=== PATIENT | female | born 1990 | race Hispanic/Latino ===

== ENCOUNTER 2021-08-05 13:58 | Emergency (ER) | payer OTHER, SELFPAY ==
[2021-08-05 14:04] VITALS: BP 125/87; PULSE 82; RESP 16; TEMP 37.1; O2SAT 97; BMI 31.8
--- NOTE | 2021-08-05 14:25 | DI.US.S_ITS ---
PROCEDURE: US OB <= 14 WEEKS FETUS INDICATIONS: WITH VAGINAL BLEEDING OUTSIDE/PRIOR DATING DATA: Last menstrual period (LMP): May 22, 2021. LMP-based estimated date of delivery (FRANKLIN): February 26, 2022. First dating scan (date and location): [facility], August 05, 2021. Estimated date of delivery (FRANKLIN) from first dating scan: February 27, 2022. TECHNIQUE: Real-time scanning was performed of the fetus and maternal pelvic organs, with image documentation. Endovaginal scanning was also performed to better visualize the fetus and maternal ovaries. COMPARISON: None. FINDINGS: Embryo: Single live intrauterine gestation is visualized with a crown-rump length of 3.65 cm for a gestational age of 10 weeks, 4 days. There is a 2.2 x 1.9 x 0.8 cm perigestational bleed. Heart rate: 173 Maternal organs: Ovaries have a normal appearance bilaterally. There is a 2.2 x 1.9 x 0.8 right corpus luteal cyst. IMPRESSION: 1. Single live intrauterine gestation with a gestational age of 10 weeks, 4 days by crown-rump length. 2. Small perigestational bleed. We strive to produce accurate, complete, and clear reports of imaging services. To assist us in improving patient care, this report was composed using standard report templates and voice recognition software. Therefore, it may contain abnormal punctuation, insertions and/or omissions. Occasional wrong-word or sound-alike substitutions may occur. Though we review the report and make efforts to correct it, we do recommend that the report be read carefully in proper context to recognize any text inaccuracies. Dictated by: Chelle Giron M.D. on 08/05/2021 at 15:38 Approved by: Chelle Giron M.D. on 08/05/2021 at 15:40
[2021-08-05 15:41] LABS: Add Manual Diff / Slide Review NO; Basophils Absolute Auto 0 /uL (0-100); Basophils Percent Auto 0.2 % (0-2); Eosinophils Absolute Auto 100 /uL (0-450); Eosinophils Percent Auto 0.9 % (2-4); Hematocrit 34.6 % (36-46); Hemoglobin 11.6 g/dL (12.0-16.0); Lymphocytes Absolute Auto 1300 /uL (1100-4500); Lymphocytes Percent Auto 17.9 % (25-40); Mean Corpuscular HGB Conc 33.5 % (30-36); Mean Corpuscular Hemoglobin 27.1 PG (26-34); Mean Corpuscular Volume 80.8 fL (80-100); Monocytes Absolute Auto 500 /uL (0-900); Monocytes Percent Auto 6.4 % (3-14); Neutrophils Absolute Auto 5600 /uL (1500-7000); Neutrophils Percent Auto 74.6 % (50-75); Platelet Count 158 X10^3/uL (150-400); Red Blood Cell Count 4.29 X10^6/uL (4.0-5.2); Red Cell Distribution Width 16.9 % (11.6-14.8); White Blood Cell Count 7.5 X10^3/uL (4.5-11.0)
[2021-08-05 15:56] LABS: Alanine Aminotransferase 12 IU/L (<35); Albumin 4.3 g/dL (3.5-5.0); Albumin Globulin Ratio 1.4 (1.0-2.8); Alkaline Phosphatase 73 U/L (38-126); Aspartate Aminotransferase 21 IU/L (14-36); BUN Creatinine Ratio 17.2 (6-22); Bilirubin Total 0.1 mg/dL (0.2-1.3); Blood Urea Nitrogen 10 mg/dL (7-17); Calcium 9.1 mg/dL (8.4-10.2); Carbon Dioxide 26 mmol/L (22-32); Chloride 102 mmol/L (98-107); Estimated Glomerular Filt Rate > 60 mL/min (>60); Glucose 101 mg/dL (70-100); HEMOLYSIS < 15 (0-50); Potassium 3.6 mmol/L (3.4-5.1); Sodium 136 mmol/L (137-145); Total Protein 7.3 g/dL (6.3-8.2)
[2021-08-05 16:36] LABS: HCG Quantitative /Beta subunit 60477 mIU/mL
--- NOTE | 2021-08-05 18:05 | ED_ITS ---
HPI - Female Genitourinary General Chief complaint: Urogenital-Female Stated complaint: Pelvic cramping- referred by Soni nurse for US Time Seen by Provider: 08/05/21 18:05 Source: patient Mode of arrival: Ambulatory Limitations: no limitations Related Data Home Medications Medication Instructions Recorded Confirmed prenat.vits,jaleesa,dsp-pafk-wymss 1 tab PO DAILY 07/13/21 Allergies Allergy/AdvReac Type Severity Reaction Status Date / Time Latex, Natural Rubber AdvReac Mild Verified 07/13/21 13:45 Review of Systems Review of Systems ROS Unobtainable: All systems reviewed & are unremarkable except as noted in HPI and below Patient History Surgical History History of Substance Use Type: does not use Exam Initial Vital Signs Initial Vital Signs: Vital Signs Temperature 98.8 F 08/05/21 14:04 Pulse Rate 82 08/05/21 14:04 Respiratory Rate 16 08/05/21 14:04 Blood Pressure 125/87 08/05/21 14:04 Pulse Oximetry 97 08/05/21 14:04 Course Orders Ordered: ED Orders 08/05/21 14:25 US OB <= 14 weeks fetus Stat 08/05/21 15:11 ABO RH Type Stat Complete Blood Count AUTO DIFF Stat Comprehensive Metabolic Panel Stat HCG Quantitative /Beta subunit Stat Vital Signs Vital signs: Vital Signs - 8 hr 08/05/21 14:04 Temperature 98.8 F Pulse Rate 82 Respiratory Rate 16 Blood Pressure 125/87 Pulse Oximetry 97 MDM - Female Genitourinary Lab Data Result diagrams: 08/05/21 15:11 08/05/21 15:11 Labs: Lab Results 08/05/21 08/05/21 08/05/21 Range/Units 15:11 15:11 15:11 WBC 7.5 (4.5-11.0) X10^3/uL RBC 4.29 (4.0-5.2) X10^6/uL Hgb 11.6 L (12.0-16.0) g/dL Hct 34.6 L (36-46) % MCV 80.8 (80-100) fL MCH 27.1 (26-34) PG MCHC 33.5 (30-36) % RDW 16.9 H (11.6-14.8) % Plt Count 158 (150-400) X10^3/uL Neut % (Auto) 74.6 (50-75) % Lymph % (Auto) 17.9 L (25-40) % [place] % (Auto) 6.4 (3-14) % Eos % (Auto) 0.9 L (2-4) % Baso % (Auto) 0.2 (0-2) % Neut # (Auto) 5600 (1809-0621) /uL Lymph # (Auto) 1300 (3776-0535) /uL [place] # (Auto) 500 (0-900) /uL Eos # (Auto) 100 (0-450) /uL Baso # (Auto) 0 (0-100) /uL Sodium 136 L (137-145) mmol/L Potassium 3.6 (3.4-5.1) mmol/L Chloride 102 (98-107) mmol/L Carbon Dioxide 26 (22-32) mmol/L BUN 10 (7-17) mg/dL Creatinine 0.58 (0.52-1.04) mg/dL Estimated GFR > 60 (>60) mL/min BUN/Creatinine Ratio 17.2 (6-22) Glucose 101 H (70-100) mg/dL Calcium 9.1 (8.4-10.2) mg/dL Total Bilirubin 0.1 L (0.2-1.3) mg/dL AST 21 (14-36) IU/L ALT 12 (<35) IU/L Alkaline Phosphatase 73 (38-126) U/L Total Protein 7.3 (6.3-8.2) g/dL Albumin 4.3 (3.5-5.0) g/dL Globulin 3.0 (1.7-4.1) g/dL Albumin/Globulin Ratio 1.4 (1.0-2.8) HCG, Quant 70175 mIU/mL Blood Type O Positive Discharge Plan Departure Prescriptions: No Action prenat.vits,jaleesa,kxa-[id number]-aqrdd Tablet 1 tab PO DAILY 0RF Referrals: Elda Crabtree DO [Primary Care Provider] -
--- NOTE | 2021-08-05 18:07 | ED_ITS ---
HPI - General Chief complaint: Urogenital-Female Stated complaint: Pelvic cramping- referred by Soni severino for US Time Seen by Provider: 08/05/21 18:05 Source: patient Mode of arrival: Ambulatory Limitations: no limitations History of Present Illness HPI Narrative: This is a 31-year-old female who is a at 10 weeks who presents for dark bloody spotting. Patient states she started having pelvic cramping and spotting in the last several weeks started as bright red blood it is now been dark but h as had some increasing amount of spotting. She states pretty much daily certain movements such as twisting or repetitive bending increase the cramping sensation or cause pain. She has not had any large clots. She has not felt lightheaded, no chest pain or shortness of breath. She has nausea with struck smells. No vomiting. No dysuria urgency or frequency. No new vaginal discharge. No back or flank pain. Patient primary care is Dr. Crabtree, she will be her provider but they have not had their 1st visit. She is on a vitamin. She does not have any other medical issues. No prior surgeries. No allergies besides latex. Patient is accompanied by her . She did have a prior visit at [facility] urgency department had ultrasound that told her she had a chorionic hemorrhage but she is unsure of the size. Related Data Home Medications Medication Instructions Recorded Confirmed prenat.vits,jaleesa,uuo-esfg-wibun 1 tab PO DAILY 07/13/21 Allergies Allergy/AdvReac Type Severity Reaction Status Date / Time Latex, Natural Rubber AdvReac Mild Verified 07/13/21 13:45 Review of Systems Review of Systems ROS Unobtainable: All systems reviewed & are unremarkable except as noted in HPI and below Exam Narrative Exam Narrative: GENERAL: Alert and oriented x three, female in mild distress. HEENT: Head normocephalic, atraumatic, EOMI, pupils reactive, face symmetric, moist mucous membranes NECK: Supple, full range of motion CARDIOVASCULAR: Regular rate and rhythm without murmurs, rubs or gallops. RESPIRATORY: Breath sounds equal bilaterally, no wheezes rales or rhonchi. ABDOMEN: Soft, nontender. Normoactive bowel sounds all 4 quadrants. No guarding or rebound, rigidity, no mass : No CVA tenderness EXTREMITIES: Normal range of motion, no clubbing or edema. Neurovascularly intact NEUROLOGICAL: Cranial nerves II through XII grossly intact. Moving all extremities SKIN: Warm, dry, no petechiae, no rashes or lesions. Initial Vital Signs Initial Vital Signs: Vital Signs Temperature 98.8 F 08/05/21 14:04 Pulse Rate 82 08/05/21 14:04 Respiratory Rate 16 08/05/21 14:04 Blood Pressure 125/87 08/05/21 14:04 Pulse Oximetry 97 08/05/21 14:04 Course Orders Ordered: ED Orders 08/05/21 14:25 US OB <= 14 weeks fetus Stat 08/05/21 15:11 ABO RH Type Stat Complete Blood Count AUTO DIFF Stat Comprehensive Metabolic Panel Stat HCG Quantitative /Beta subunit Stat Vital Signs Vital signs: Vital Signs - 8 hr 08/05/21 14:04 Temperature 98.8 F Pulse Rate 82 Respiratory Rate 16 Blood Pressure 125/87 Pulse Oximetry 97 MDM - OB/Uterine Contractions Lab Data Result diagrams: 08/05/21 15:11 08/05/21 15:11 Labs: Lab Results 08/05/21 08/05/21 08/05/21 Range/Units 15:11 15:11 15:11 WBC 7.5 (4.5-11.0) X10^3/uL RBC 4.29 (4.0-5.2) X10^6/uL Hgb 11.6 L (12.0-16.0) g/dL Hct 34.6 L (36-46) % MCV 80.8 (80-100) fL MCH 27.1 (26-34) PG MCHC 33.5 (30-36) % RDW 16.9 H (11.6-14.8) % Plt Count 158 (150-400) X10^3/uL Neut % (Auto) 74.6 (50-75) % Lymph % (Auto) 17.9 L (25-40) % [place] % (Auto) 6.4 (3-14) % Eos % (Auto) 0.9 L (2-4) % Baso % (Auto) 0.2 (0-2) % Neut # (Auto) 5600 (9962-2300) /uL Lymph # (Auto) 1300 (6540-7610) /uL [place] # (Auto) 500 (0-900) /uL Eos # (Auto) 100 (0-450) /uL Baso # (Auto) 0 (0-100) /uL Sodium 136 L (137-145) mmol/L Potassium 3.6 (3.4-5.1) mmol/L Chloride 102 (98-107) mmol/L Carbon Dioxide 26 (22-32) mmol/L BUN 10 (7-17) mg/dL Creatinine 0.58 (0.52-1.04) mg/dL Estimated GFR > 60 (>60) mL/min BUN/Creatinine Ratio 17.2 (6-22) Glucose 101 H (70-100) mg/dL Calcium 9.1 (8.4-10.2) mg/dL Total Bilirubin 0.1 L (0.2-1.3) mg/dL AST 21 (14-36) IU/L ALT 12 (<35) IU/L Alkaline Phosphatase 73 (38-126) U/L Total Protein 7.3 (6.3-8.2) g/dL Albumin 4.3 (3.5-5.0) g/dL Globulin 3.0 (1.7-4.1) g/dL Albumin/Globulin Ratio 1.4 (1.0-2.8) HCG, Quant 95431 mIU/mL Blood Type O Positive Imaging Data US - OB: Radiologist's Impression: [place] [address] Ultrasound Report Signed Patient: Venice Quinn MR#: [id number] : 1990 Acct:[id number] Age/Sex: 31 / F Date of Service: 08/05/21 Loc: ED Accession Number: [id number] ?? Procedure: US OB <= 14 weeks fetus Ordering Provider: Angel Conroy MD PROCEDURE:? US OB <= 14 WEEKS FETUS ? INDICATIONS:? WITH VAGINAL BLEEDING ? OUTSIDE/PRIOR DATING DATA:? Last menstrual period (LMP):? May 22, 2021.? LMP-based estimated date of delivery (FRANKLIN):? February 26, 2022.? First dating scan (date and location):? [facility], August 05, 2021.? Estimated date of delivery (FRANKLIN) from first dating scan:? February 27, 2022. ? TECHNIQUE:? Real-time scanning was performed of the fetus and maternal pelvic organs, with image documentation.? Endovaginal scanning was also performed to better visualize the fetus and maternal ovaries.? ? COMPARISON:? None. ? FINDINGS:? ? Embryo:? Single live intrauterine gestation is visualized with a crown-rump length of 3.65 cm for a gestational age of 10 weeks, 4 days.? There is a 2.2 x 1.9 x 0.8 cm perigestational bleed. Heart rate:? 173 ? Maternal organs:? Ovaries have a normal appearance bilaterally. ? There is a 2.2 x 1.9 x 0.8 right corpus luteal cyst. ? ? IMPRESSION:? ? 1. Single live intrauterine gestation with a gestational age of 10 weeks, 4 days by crown-rump length. ? 2. Small perigestational bleed. ? We strive to produce accurate, complete, and clear reports of imaging services. To assist us in improving patient care, this report was composed using standard report templates and voice recognition software. Therefore, it may contain abnormal punctuation, insertions and/or omissions. Occasional wrong-word or sound-alike substitutions may occur. Though we review the report and make efforts to correct it, we do recommend that the report be read carefully in proper context to recognize any text inaccuracies. ? Dictated by: Chelle Giron M.D. on 08/05/2021 at 15:38 ? ? Approved by: Chelle Giron M.D. on 08/05/2021 at 15:40?? MDM Narrative Medical decision making narrative: This is a 31-year-old female who presents with cramping and persistent spotting. Patient describes it as dark blood. She is 10 weeks and 4 days on ultrasound with a 2.2 x 1.9 x 0.8 cm perigestational bleed heart rate is 173. Patient's is consistent with her dates. Discussed patient at this time pelvic rest, follow up with her provider discussed return prec autions. All questions asked. Discharge Plan Departure Patient Disposition: Home Clinical Impression: Vaginal bleeding in Instructions: DI for Vaginal Bleeding During Activity Restrictions/Additional Instructions: Follow-up with Dr. Crabtree at her appointment on the . Feel free to call the office tomorrow to see if they would like to see you sooner. You may take Tylenol up to a 1000 mg every 6 hours as needed for pain. Make sure you hydrate plenty with water. I would recommend pelvic rest, no sexual activity, no lifting over 20 lbs, and if certain activities seem to increase your discomfort or pain please avoid those activities. You may otherwise continue normal activities. Please return for lightheadedness or passing out, new chest pain or shortness of breath, rapidly worsening abdominal, back or flank pain, large amounts of bright red bleeding, large clots or other new or concerning symptoms. Prescriptions: No Action prenat.vits,jaleesa,[id number] Tablet 1 tab PO DAILY 0RF Referrals: Elda Crabtree DO [Primary Care Provider] -
[2021-08-05 18:43] VITALS: BP 112/80; PULSE 79; RESP 16; O2SAT 98
== END 2021-08-05 18:43 | disposition home or self-care (01) ==
PROVIDERS: Emergency Medicine; Emergency Provider Emergency Medicine; PCP Family Medicine
DX: O46.91 Antepartum hemorrhage, unspecified, first trimester (principal); R11.0 Nausea; Z3A.10 10 weeks gestation of pregnancy
CPT/HCPCS: 36415; 76801; 76817; 80053; 84702; 85025; 86900; 86901; 99281; 99283

== ENCOUNTER → 2021-08-19 11:55 | Outpatient (CLI) | payer OTHER, SELFPAY ==
[2021-08-19 13:22] LABS: Add Manual Diff / Slide Review NO; Basophils Absolute Auto 0 /uL (0-100); Basophils Percent Auto 0.1 % (0-2); Eosinophils Absolute Auto 100 /uL (0-450); Eosinophils Percent Auto 1.3 % (2-4); Hematocrit 35.2 % (36-46); Hemoglobin 11.8 g/dL (12.0-16.0); Lymphocytes Absolute Auto 1100 /uL (1100-4500); Lymphocytes Percent Auto 14.8 % (25-40); Mean Corpuscular HGB Conc 33.6 % (30-36); Mean Corpuscular Hemoglobin 27.6 PG (26-34); Mean Corpuscular Volume 82.3 fL (80-100); Monocytes Absolute Auto 500 /uL (0-900); Monocytes Percent Auto 6.6 % (3-14); Neutrophils Absolute Auto 5600 /uL (1500-7000); Neutrophils Percent Auto 77.2 % (50-75); Platelet Count 160 X10^3/uL (150-400); Red Blood Cell Count 4.28 X10^6/uL (4.0-5.2); Red Cell Distribution Width 17.2 % (11.6-14.8); White Blood Cell Count 7.3 X10^3/uL (4.5-11.0)
[2021-08-20 06:23] LABS: RPR Screen Non Reactive (Non Reactive)
[2021-08-20 07:37] LABS: Varicella IgG Antibody 2441 index (Immune >165)
[2021-08-21 17:20] LABS: Hepatitis B Surface Antigen NEGATIVE s/c (NEGATIVE); Rubella Antibody IgG 56.1 IU/mL (>15)
[2021-08-21 17:37] LABS: HIV 1 & 2 Ab/Ag 4th Gen Combo NEGATIVE (NEGATIVE); Hep C Virus Ab w/Reflex Quant NEGATIVE s/c (NEGATIVE)
== END ==
PROVIDERS: Referring Provider Family Medicine; Visit Provider Family Medicine
DX: Z34.81 Encounter for supervision of other normal pregnancy, first trimester (principal)
CPT/HCPCS: 36415; 80055; 86787; 86803; 86850; 86900; 86901; 87389

== ENCOUNTER → 2021-10-01 14:07 | Outpatient (CLI) | payer OTHER, SELFPAY ==
--- NOTE | 2021-10-01 14:08 | DI.US.S_ITS ---
PROCEDURE: US OB >= 14 WEEKS FETUS INDICATIONS: ANATOMY OUTSIDE/PRIOR DATING DATA: Last menstrual period (LMP): 05/22/2021. LMP-based estimated date of delivery (FRANKLIN): 02/26/2022. First dating scan (date and location): 08/05/2021. Estimated date of delivery (FRANKLIN) from first dating scan: 02/07/2022. TECHNIQUE: Real-time scanning was performed of the fetus, with image documentation and biometric measurements. COMPARISON: [facility], OB <= 14 WEEKS FETUS, 08/05/2021, 15:34. FINDINGS: General: A single living intrauterine gestation is present. Presentation: Pre. Placenta: Placental position is posterior , without previa. Amniotic fluid index: 15 cm, normal range is 5-24 cm. Single deepest vertical pocket is 5.2 cm. heart rate: 153 beats per minute. Maternal cervical canal: 4.3 cm long. Normal lower limit is 2.5 cm. biometrics: Biparietal diameter: 4.1 cm 18 weeks 2 days Head circumference: 15.3 cm 18 weeks 2 days Abdominal circumference: 12.1 cm 17 weeks 6 days Femur length: 2.9 cm 19 weeks 0 days Composite gestational age from initial ultrasound: 18 weeks 5 days Composite gestational age from present scan: 18 weeks 3 days Estimated weight and percentile: 236 g 25th percentile Anatomic survey: Neuro: Ventricles are non-dilated at less than 10 mm. Cisterna magna is normal at 3-11 mm. Cerebellum is normal in size and morphology. Nuchal skin fold: Normal at less than 6 mm between 14-21 weeks gestational age. Face: Nose and lips, facial profile are normal. Spine: No evidence for spina bifida. Heart: 4-chambered heart is present, with normal ventricular outflow tracts. Diaphragm: Diaphragm is intact. Stomach: Left-sided stomach is present. Kidneys: No hydronephrosis. Normal is less than 5 mm in 2nd trimester, less than 7 mm in 3rd trimester. Cord: 3-vessel cord has orthotopic insertion. Bladder: Normal in size. Extremities: All 4 extremities identified. IMPRESSION: Single live intrauterine with ultrasound gestational age today 18 weeks 3 days. Anatomy is within normal limits. We strive to produce accurate, complete, and clear reports of imaging services. To assist us in improving patient care, this report was composed using standard report templates and voice recognition software. Therefore, it may contain abnormal punctuation, insertions and/or omissions. Occasional wrong-word or sound-alike substitutions may occur. Though we review the report and make efforts to correct it, we do recommend that the report be read carefully in proper context to recognize any text inaccuracies. Dictated by: Viky Martinez M.D. on 10/01/2021 at 16:28 Approved by: Viky Martinez M.D. on 10/01/2021 at 16:31
== END ==
PROVIDERS: Referring Provider Family Medicine; Visit Provider Family Medicine
DX: Z34.92 Encounter for supervision of normal pregnancy, unspecified, second trimester (principal); Z3A.18 18 weeks gestation of pregnancy
CPT/HCPCS: 76811

== ENCOUNTER → 2021-12-31 10:42 | Outpatient (CLI) | payer OTHER, SELFPAY ==
[2021-12-31 13:30] LABS: Hematocrit 32.2 % (36-46); Hemoglobin 11.1 g/dL (12.0-16.0)
[2021-12-31 13:42] LABS: GTT (PREG) 1 Hour PP 50gm Dose 160 mg/dL (76-139)
== END ==
PROVIDERS: Referring Provider Family Medicine; Visit Provider Family Medicine
DX: Z34.90 Encounter for supervision of normal pregnancy, unspecified, unspecified trimester (principal); Z3A.29 29 weeks gestation of pregnancy
CPT/HCPCS: 82950; 85014; 85018

== ENCOUNTER 2022-01-23 11:33 | Outpatient (CLI) | payer OTHER, SELFPAY ==
--- NOTE | 2022-01-23 13:23 | PM.OBTRLD ---
Visit Information Visit Information Date of evaluation: 01/23/22 Primary OB Provider: Elda Crabtree Reason for Evaluation: Yes non-stress test Comments/Additional reasons for admission: 27-year-old at 35 weeks gestation sent from clinic due to tachycardia with the Doppler. She denies contractions, leaking or bleeding and reports good movement. She can be very anxious in medical settings and has felt anxious today. Vital Signs Vital Signs: Temperature 36.3? blood pressure 110/66 heart rate 83 PFSH Medical History Acne (~2012) Anemia (~2006) Anxiety (~2011) Chicken pox (~1997) Surgical History Anesthesia History of (~05/05/11) History of skin surgery Family History Father Diabetes mellitus Hyperlipidemia Mother Hypertension Anxiety Grandfather Hypertension Stroke Grandmother Diabetes mellitus Hypertension Hyperlipidemia Anxiety Grandfather Hypertension Grandmother Diabetes mellitus Hyperlipidemia Hypertension Social History marital status: number of children: 1 household members: spouse and children lives independently: Yes housing: house pets and animals: No occupational status: unemployed current occupational exposures/hazards: No special paul needs: No travel history: over 6 months ago seatbelt use: always water heater temp set < 120 deg: No (Will check and change if needed) working smoke detector in home: Yes fire extinguisher in home: Yes carbon monox detector in home: Yes firearms in home: Yes firearms unloaded and locked: Yes do you feel safe at home: Yes Smoking Status: Never smoker second hand exposure: No alcohol intake: former substance use type: does not use during the past year weight has: remained stable well-balanced diet: daily or most days daily servings fruits/ve-4 caffeine: No (drinks decaf) Type(s) of exercise: walking and regular exercise Evaluation Evaluation Baseline heart rate: 150 Variability: Moderate (11-25) monitor accelerations: Present Monitor Decelerations: Absent Category of Tracing: Reactive Diagnosis, Plan/Disposition Final Diagnosis (1) 35 weeks gestation of : Status: Acute Plan/Disposition Plan: 31-year-old 35 weeks gestation with concern for tachycardia. When she was initially placed on the monitor the baseline heart rate was 160 with moderate variability and accelerations. After approximately 40 minutes the baseline settled down to 150s. Patient drink water during that time. No concern for fever or illness. Patient was encouraged to hydrate well. OB Disposition: home
== END 2022-01-23 12:55 | disposition home or self-care (01) ==
LOC: LABOR 12:49 → OB 01-26 08:55
PROVIDERS: Referring Provider Family Medicine; Visit Provider Family Medicine
DX: O36.8330 Maternal care for abnormalities of the fetal heart rate or rhythm, third trimester, not applicable or unspecified (principal); Z3A.35 35 weeks gestation of pregnancy
CPT/HCPCS: 59025; G0378; G0379

== ENCOUNTER → 2022-02-05 15:19 | Outpatient (CLI) | payer OTHER, MEDICAID, SELFPAY ==
[2022-02-06 15:00] LABS: Strep Grp B PCR NEG for Grp B Strep
== END ==
PROVIDERS: Visit Provider Family Medicine
DX: Z34.93 Encounter for supervision of normal pregnancy, unspecified, third trimester (principal); Z3A.36 36 weeks gestation of pregnancy
CPT/HCPCS: 87653

== ENCOUNTER 2022-02-19 05:50 | Inpatient (IN) | payer OTHER, MEDICAID, SELFPAY ==
[2022-02-19 06:29] VITALS: BP 122/82
[2022-02-19] MEDS: LACTATED RINGERS 1,000 ML 100 ML IV (06:48)
[2022-02-19 06:49] LABS: Add Manual Diff / Slide Review NO; Basophils Absolute Auto 0 /uL (0-100); Basophils Percent Auto 0.3 % (0-2); Eosinophils Absolute Auto 100 /uL (0-450); Eosinophils Percent Auto 0.9 % (2-4); Hematocrit 30.2 % (36-46); Hemoglobin 10.3 g/dL (12.0-16.0); Lymphocytes Absolute Auto 1100 /uL (1100-4500); Lymphocytes Percent Auto 18.2 % (25-40); Mean Corpuscular Hemoglobin 28.9 PG (26-34); Mean Corpuscular Volume 84.9 fL (80-100); Monocytes Absolute Auto 600 /uL (0-900); Neutrophils Absolute Auto 4300 /uL (1500-7000); Neutrophils Percent Auto 70.6 % (50-75); Platelet Count 138 X10^3/uL (150-400); Red Blood Cell Count 3.56 X10^6/uL (4.0-5.2); Red Cell Distribution Width 15.2 % (11.6-14.8); White Blood Cell Count 6.1 X10^3/uL (4.5-11.0)
--- NOTE | 2022-02-19 06:50 | P.HPOB_ITS ---
OB HPI Date/Time Date of admission: 02/19/22 Date Patient Seen: 02/19/22 History of Present Condition Chief complaint: Repeat C Section FRANKLIN Calculator Estimated Delivery Date Method Current WG Current Estimate 02/26/22 LMP (Certain) 39w 0d Other Estimates 03/01/22 Ultrasound #1 38w 4d Estimated Gestational Age (weeks): 39 : 2 Para: 1 Narrative: 31 30 weeks gestation here for repeat . Complicated by COVID in the second trimester without complications. She also has severe anxiety for wh ich she declines medication. She declined Tdap. She reluctantly completed a 1 hour GTT which was elevated at 160. She declined to do a 3 hour GTT but did check blood sugars 4 times a day at home for 2 weeks and all were in the normal range. care: good care, initiated at week # (12), number of visits (7) and pounds weight gain (10) Dating criteria OB: LMP confirmed by 1st trimester US Ultrasounds: normal 1st trimester US and normal mid trimester US Obstetrical complications: none Medical complications OB: none Indications Operative indications ( section): previous uterine surgery Preadmission Labs Last OB Lab Results: Blood Type O Positive 08/19/21 12:24 Antibody Screen Negative 08/19/21 12:24 Hematocrit 30.2 % (36-46) L 02/19/22 06:37 Hemoglobin 10.3 g/dL (12.0-16.0) L 02/19/22 06:37 Hepatitis B Surface Antigen Negative s/c (NEGATIVE) 08/19/21 12 :24 Hepatitis C Antibody Negative s/c (NEGATIVE) 08/19/21 12:24 Rubella Antibody 56.1 IU/mL (>15) 08/19/21 12:24 Varicella-Zoster IgG Antibody 2441 index (Immune >165) 08/19/21 12:24 Glucose 1 Hour 160 mg/dL (76-139) H 12/31/21 12:35 Group B Streptococcus (PCR) Neg for grp b strep 02/05/22 15:19 Prior (ies) Past Pregnancies Del. Date GA/Weeks Labor Lgth Wt Sex Route Outcome Anesthesia Place Delv Breastfeed Preg Comp Name 05/05/11 41 36 7 lb 11 oz live - full term spinal [place], [place] 2 months failure to progress post-dates induction Sergey Delivery Date: 05/05/11 Last Updated by: Ksenia Hall R.N. hemorrhage (~4 units PRBCs transfused) Evaluation Evaluation Baseline heart rate: 140 Variability: Moderate (11-25) monitor accelerations: Present Monitor Decelerations: Absent Category of Tracing: Reactive [facility] Medical History Acne (~2012) Anemia (~2006) Anxiety (~2011) Chicken pox (~1997) Surgical History Anesthesia History of (~05/05/11) History of skin surgery Family History Father Diabetes mellitus Hyperlipidemia Mother Hypertension Anxiety Grandfather Hypertension Stroke Grandmother Diabetes mellitus Hypertension Hyperlipidemia Anxiety Grandfather Hypertension Grandmother Diabetes mellitus Hyperlipidemia Hypertension Social History marital status: number of children: 1 household members: spouse and children lives independently: Yes housing: house pets and animals: No occupational status: unemployed current occupational exposures/hazards: No special paul needs: No travel history: over 6 months ago seatbelt use: always water heater temp set < 120 deg: No (Will check and change if needed) working smoke detector in home: Yes fire extinguisher in home: Yes carbon monox detector in home: Yes firearms in home: Yes firearms unloaded and locked: Yes do you feel safe at home: Yes Smoking Status: Never smoker second hand exposure: No alcohol intake: former substance use type: does not use during the past year weight has: remained stable well-balanced diet: daily or most days daily servings fruits/ve-4 caffeine: No (drinks decaf) Type(s) of exercise: walking and regular exercise Meds Home Medications and Allergies Home Medications Medication Instructions Recorded Confirmed Type prenat.vits,jaleesa,sjr-upfc-vqriz 1 tab PO DAILY 07/13/21 02/19/22 History double electric breast pump and #1 ea 12/11/21 02/12/22 Rx supplies Blood glucose #100 ea 01/26/22 02/12/22 Rx monitor,strips,lancets Allergies Allergy/AdvReac Type Severity Reaction Status Date / Time Latex, Natural Rubber AdvReac Mild Verified 02/12/22 15:17 OB Exam Narrative Exam Narrative: Blood pressure 122/82 heart rate HENMT Head: normal to inspection Mouth: oral mucosae normal Eyes General: appearance normal, both eyes and all related structures Resp Effort & Inspection: normal respiratory effort Auscultation: clear to auscultation bilaterally Cardio Rate: regular rate Rhythm: regular rhythm Heart Sounds: S1 normal and S2 normal Extremities Lower extremity: Yes edema (trace bilateral) Estimated Weight (lbs): 7 Objective Labs Result Diagrams: 02/19/22 06:37 Assessment and Plan Assessment and Plan Assessment and Plan narrative: 31-year-old at 39 weeks gestation here for repeat section. Her first delivery was complicated. She was taken for primary section due to failure to progress, required general anesthesia then hemorrhaged requiring 4 units of blood. She is understandably nervous about surgery. Risks and benefits been discussed, specifically risk of bleeding, infection and injury to surrounding organs. She is accepting of a blood transfusion if needed. Consent signed. Will give 2 g of cefazolin prior to surgery.
[2022-02-19 07:04] LABS: COVID19 -Nasal RAPID Negative (Negative)
--- NOTE | 2022-02-19 07:33 | PM.PREOP ---
Pre-operative Note COVID-19 COVID-19 status: Negative Result date/Date tested (Pos, Neg/Pending): 02/19/22 Criteria for continued procedure: Non-surgical alternatives not available or appropriate per current SOC Interval Note History & Physical reviewed/Exam performed by Physician: Yes Changes to H&P: No
[2022-02-19] MEDS: CEFAZOLIN 2 GM/100 ML PREMIX 100 ML IV (08:01)
[2022-02-19] MEDS: ACETAMINOPHEN IV 1,000 MG/100 ML VIAL 400 MG IV (08:07)
--- NOTE | 2022-02-19 08:12 | SUR.OPER ---
Supine on padded OR bed, head on pillow, arms secured on padded arm boards at <90 degrees abduction, legs uncrossed, safety belt at thigh, tape over blanket over lower legs, bump under right hip.
--- NOTE | 2022-02-19 08:29 | SUR.OPER ---
cord blood and placenta sent with OB RN
--- NOTE | 2022-02-19 09:10 | PM.OBCS.1 ---
Operative Date/Time/Diagnoses Date of procedure: 02/19/22 Time of procedure: 08:15 Pre-op diagnosis: 39 weeks of Previous section Post-op diagnosis: same Procedure & Clinicians Procedure: Repeat low transverse section Same procedure as scheduled: Yes Indications: Prior section 39 weeks of Surgeon: Elda Crabtree Integrated Circuit Design Engineer: Mikaela Richards Reason for Integrated Circuit Design Engineer: Dr. Richards was essential for dissection dense scar tissue, retraction, vacuum assisted delivery of infant and closure of half the fascia. Anesthesia Type: Spinal Operative Notes Findings: Vigorous female , normal uterus, tubes and ovaries Closure Type: primary Estimated Blood Loss (mL): 500 Procedure in detail: The patient was taken to the operating room where she was placed in the seated position. Spinal anesthesia was administered. She was then placed in the dorsal supine position with a leftward tilt. SCDs applied. She was prepped and draped in the usual sterile fashion. A timeout was performed. After spinal analgesia was found to be adequate, a Pfannenstiel skin incision was made 2 fingerbreadths above the pubic symphysis over the previous scar and carried through to the underlying layer fascia. The fascia was nicked in the midline and the incision extended bilaterally with Jones scissors, Dr. Crabtree doing the left side and Dr. Richards doing the right side. The superior aspect of the fascial incision was grasped with a Charisse clamps, elevated, and the underlying rectus muscles dissected off sharply and bluntly. There was dense scar tissue dissected by Dr. Richards. Attention was then turned to the inferior aspect of this incision which in a similar fashion was grasped with a Charisse clamps, elevated, and the underlying rectus muscles dissected off sharply and bluntly. The rectus muscles were in the midline. The peritoneum was entered and dissected bluntly laterally by Dr. Crabtree and Dr. Richards. After entering the peritoneum there was good visualization of the bladder. The bladder blade was inserted. The vesicouterine peritoneum was identified, grasped with the pickup, and entered sharply with the Metzenbaum scissors. This incision was extended bilaterally, and the bladder flap was created digitally. The bladder blade was reinserted. The lower uterine segment was incised in a transverse fashion with the scalpel. Upon entering the amniotic sac there was a large amount clear amniotic fluid. The 's head was delivered with vacuum assistance by Dr. Richards due to difficulty despite fundal pressure. The remainder of the body delivered without difficulty. The cord was double clamped and cut after one minute. The infant was handed off to waiting RN and RT. The placenta was delivered with gentle traction. The uterus was cleared of all clots and debris. The uterine incision was repaired with #1 chromic in a running interlocking fashion and a second layer the same suture was used for an imbricating layer. Hemostasis was achieved. The tubes and ovaries were examined and were found to be normal. The gutters were cleared of all clots and debris. The peritoneum was closed using 2-0 Vicryl in a running fashion. The fascia was reapproximated using 0 Vicryl in a running fashion. Subcutaneous layer was copiously irrigated with warm normal saline. 3 simple interrupted sutures of 3-0 Vicryl were placed to reapproximate the subcutaneous layer. The skin was closed with 4-0 undyed Vicryl in a subcuticular fashion. Steri-Strips were placed. An Aquacel dressing was placed. The uterus was expressed of a small amount of old blood. Sponge, lap, and instrument counts were correct. The patient tolerated the procedure well, and was taken to PACU in stable condition. [place] Baby 1: Gender: Female Presentation: vertex Placental Delivery Description: Spontaneous Cord Vessel Description: 3 Vessels score (1 min): 9 score (5 min): 9 Post-operative Condition: stable Disposition: PACU Aftercare: routine postop
[2022-02-19 09:19] VITALS: BP 104/68; PULSE 56; RESP 14; O2SAT 98
[2022-02-19 09:24] VITALS: BP 105/73; BP 106/71; PULSE 57; PULSE 58; RESP 58; RESP 9; TEMP 36.6; O2SAT 97; O2SAT 99
[2022-02-19 09:29] VITALS: BP 108/73; PULSE 62; RESP 10; O2SAT 98
[2022-02-19] MEDS: ACETAMINOPHEN 325 MG TABLET 650 MG PO ×2 (13:06→22:38)
[2022-02-19] MEDS: KETOROLAC 30 MG/ML VIAL IV ×2 (14:45→21:02)
[2022-02-19] MEDS: OXYCODONE IR 5 MG TABLET PO ×3 (16:44→22:38)
[2022-02-20] MEDS: OXYCODONE IR 5 MG TABLET PO ×2 (02:59→06:04)
[2022-02-20] MEDS: KETOROLAC 30 MG/ML VIAL IV (03:00)
[2022-02-20] MEDS: ACETAMINOPHEN 325 MG TABLET 650 MG PO ×4 (06:04→23:38)
[2022-02-20 06:27] LABS: Add Manual Diff / Slide Review NO; Basophils Absolute Auto 0 /uL (0-100); Basophils Percent Auto 0.2 % (0-2); Eosinophils Absolute Auto 100 /uL (0-450); Eosinophils Percent Auto 0.8 % (2-4); Hematocrit 30.5 % (36-46); Hemoglobin 10.4 g/dL (12.0-16.0); Lymphocytes Absolute Auto 1500 /uL (1100-4500); Mean Corpuscular HGB Conc 34.1 % (30-36); Mean Corpuscular Hemoglobin 28.8 PG (26-34); Mean Corpuscular Volume 84.6 fL (80-100); Monocytes Absolute Auto 800 /uL (0-900); Neutrophils Absolute Auto 7200 /uL (1500-7000); Platelet Count 127 X10^3/uL (150-400); Red Blood Cell Count 3.61 X10^6/uL (4.0-5.2); Red Cell Distribution Width 15.5 % (11.6-14.8); White Blood Cell Count 9.6 X10^3/uL (4.5-11.0)
--- NOTE | 2022-02-20 07:50 | PM.OBPN.1 ---
Subjective - OB Subjective Patient comments: incisional pain, tolerating diet and flatus present Narrative: Patient has been having some pain over the left side of her incision that feels like burning. Pain medicines help. She has been up out bed and voided. Tolerating a diet and flatus. is going well without concerns in the . Date Patient Seen: 02/20/22 Time Patient Seen: 15:24 Exam Vital Signs (past 8 hours): Oxygen Delivery Method Room Air Narrative Exam Narrative: Temperature 97.9? blood pressure 116/74 heart rate 79 General: Awake and alert, no acute distress. HEENT: NCAT, EOMI, moist oral mucosa CV: Regular rate and rhythm, no murmurs, rubs or gallops Lungs: CTAB, no wheezes, rales, or rhonchi Abdomen: Aquacel dressing intact with minimal drainage. Soft, nontender; bowel tones active; uterus firm 1 cm below umbilicus Extremities: Warm, trace edema bilaterally, 2+ pedal pulses bilaterally Objective Labs Result Diagrams: 02/20/22 06:06 Labs: Laboratory Results - last 24 hr 02/20/22 06:06 WBC 9.6 D RBC 3.61 L Hgb 10.4 L Hct 30.5 L MCV 84.6 MCH 28.8 MCHC 34.1 RDW 15.5 H Plt Count 127 L Neut % (Auto) 75.0 Lymph % (Auto) 16.0 L [place] % (Auto) 8.0 Eos % (Auto) 0.8 L Baso % (Auto) 0.2 Neut # (Auto) 7200 H Lymph # (Auto) 1500 [place] # (Auto) 800 Eos # (Auto) 100 Baso # (Auto) 0 Assessment & Plan Assessment and Plan (1) Status post repeat low transverse section: Status: Acute (2) 39 weeks gestation of : Status: Acute Plan day: 1 plan OB: routine postop care Comments: 31-year-old G2 now P2 1 day after repeat section. She is progressing well. Anticipate discharge home tomorrow. Time Spent With Patient Time: Total time spent is greater than 50% in coordination of care (as documented) at patient's floor/unit and/or counseling patient: Time with patient: less than 15 minutes
[2022-02-20] MEDS: IBUPROFEN 600 MG TABLET PO ×3 (09:21→20:33)
[2022-02-20] MEDS: PRENATAL VIT,CALC/IRON/FOLIC 1 TABLET 1 TAB PO (09:21)
[2022-02-20] MEDS: DOCUSATE 100 MG CAPSULE 200 MG PO (09:22)
[2022-02-20] MEDS: OXYCODONE IR 5 MG TABLET 10 MG PO (09:23)
[2022-02-20] MEDS: OXYCODONE IR 10 MG TABLET PO ×3 (13:47→23:39)
[2022-02-21] MEDS: IBUPROFEN 600 MG TABLET PO ×2 (02:32→08:35)
[2022-02-21] MEDS: ACETAMINOPHEN 325 MG TABLET 650 MG PO ×2 (05:30→11:58)
[2022-02-21] MEDS: OXYCODONE IR 10 MG TABLET PO ×2 (05:31→12:02)
[2022-02-21] MEDS: DOCUSATE 100 MG CAPSULE 200 MG PO (08:34)
[2022-02-21] MEDS: PRENATAL VIT,CALC/IRON/FOLIC 1 TABLET 1 TAB PO (08:35)
--- NOTE | 2022-02-21 09:16 | P.DS_ITS ---
Discharge Providers Provider Date of admission: 02/19/22 05:50 Discharge Date: 02/21/22 Primary care physician: Doctor Cristo MD Consults: 02/19/22 09:29 Consult to Guest Services Manager Routine Comment: Discharge provider: Elda Crabtree DO Summary Hospital Course Date Patient Seen: 02/21/22 Time Patient Seen: 08:45 Diagnoses: Status post repeat 39 weeks of Hospital Course: Patient is a 31-year-old G2 now P2 after uncomplicated repeat C- section at 39 weeks gestation. She was admitted for repeat which was performed without complications. course has also been uncomplicated. She is ambulating, voiding and passing flatus. Vaginal bleeding is light to moderate as expected. Pain controlled with Tylenol, ibuprofen and oxycodone. She is though having quite a bit of nipple pain so is also supplementing with formula. No concerns with the . Advised patient to call for fevers, severe pain or bleeding through more than a pad an hour. She will follow-up in clinic on 02/24/22 for Aquacel dressing removal or call sooner if concerns. Peripartum Data Infant Delivery Method: Section Procedures: Repeat low-transverse section 1: Gender: Female Disposition of : home Discharge Diagnosis (1) Status post repeat low transverse section: Status: Acute (2) 39 weeks gestation of : Status: Acute Status at Discharge Cognitive/behavioral status at discharge: at baseline, oriented Functional status at discharge: independent ambulation Overall status at discharge: patient is progressing back to baseline Time Spent with Patient Time attestation: Total time spent providing and/or coordinating discharge services: Time spent: Less than 30 minutes Objective Labs Result Diagrams: 02/20/22 06:06 Exam Vital Signs (past 8 hours): Oxygen Delivery Method Room Air Temperature 97.3? blood pressure 115/80 heart rate 82 respirations 18 Narrative Exam Narrative: General: Awake and alert, no acute distress. HEENT: NCAT, EOMI, moist oral mucosa CV: Regular rate and rhythm, no murmurs, rubs or gallops Lungs: CTAB, no wheezes, rales, or rhonchi Abdomen: Aquacel dressing intact with a small amount of outlined drainage in the middle of the bandage. Soft, nontender; bowel tones active; uterus firm 1 cm below umbilicus. Extremities: Warm, no edema bilaterally, 2+ pedal pulses bilaterally Discharge Plan Discharge Plan Patient Disposition: Home Discharge orders & Medications Prescriptions: New docusate sodium 100 mg Capsule 200 mg PO DAILY Qty: 30 0RF ibuprofen 600 mg Tablet 600 mg PO Q6H PRN (Reason: Fever/Mild Pain (1-3)) Qty: 30 0RF oxycodone 5 mg Tablet 5 mg PO Q4H PRN (Reason: Pain, Moderate (4-6)) Qty: 30 0RF Continued (DME) double electric breast pump and supplies See Rx Instructions .ROUTE .MEDSUPPLY Qty: 1 0RF Rx Instructions: As directed prenat.vits,jaleesa,[id number] Tablet 1 tab PO DAILY Discontinued (DME) Blood glucose monitor,strips,lancets See Rx Instructions .Route .MEDSUPPLY Qty: 100 0RF Rx Instructions: As directed three times daily for blood glucose monitoring.Fasting check in the morning, and 1 hr after meals. Follow up/Referrals: Doctor Lemons MD [Primary Care Provider] - Elda Crabtree DO [Physician] - 02/24/22 9:00 am Diet/Activity/Treatments Diet: Diet as Tolerated Skin/Wound/Dressing Care Report to your healthcare provider any signs of infection, such as:: chills, fever, night sweats, increased pain, unusual drainage and unusual redness Visit Report/Discharge Packet Visit Report Forms: Patient Portal/API, Stroke Signs & Symptoms Discharge Data Primary Care Provider: Doctor Cristo
== END 2022-02-21 12:45 | disposition home or self-care (01) | DRG 788 ==
PROVIDERS: Admitting Provider Family Medicine; Referring Provider Family Medicine; Visit Provider Family Medicine
PROC: 10D00Z1 Extraction of Products of Conception, Low, Open Approach (ICD-10-PCS; CPT 59514; principal; 2022-02-19 07:45)
DX: O34.211 Maternal care for low transverse scar from previous cesarean delivery (principal); Z3A.39 39 weeks gestation of pregnancy; Z37.0 Single live birth; O99.344 Other mental disorders complicating childbirth; F41.9 Anxiety disorder, unspecified; Z20.822 Contact with and (suspected) exposure to COVID-19
CPT/HCPCS: 36415; 59050; 59510; 59514; 85025; 86850; 86900; 86901; 87635; C9803; J0131; J0690; J1885; J2274; J2590; J2704

== ENCOUNTER → 2022-09-18 07:20 | Outpatient (CLI) | payer OTHER, MEDICAID, SELFPAY ==
--- NOTE | 2022-09-18 07:22 | DI.US.S_ITS ---
PROCEDURE: US OB <= 14 WEEKS FETUS INDICATIONS: DATES OUTSIDE/PRIOR DATING DATA: Last menstrual period (LMP): 07/06/2022 LMP-based estimated date of delivery (FRANKLIN): 04/12/2023 First dating scan (date and location): 09/18/2022 Estimated date of delivery ([place]) from first dating scan: 05/18/2023 TECHNIQUE: Real-time scanning was performed of the fetus and maternal pelvic organs, with image documentation. Endovaginal scanning was also performed to better visualize the fetus and maternal ovaries. COMPARISON: [facility], US, OB <= 14 WEEKS FETUS, 08/05/2021, 15:34. FINDINGS: Embryo: Single intrauterine gestational sac is seen with yolk sac seen. No pole is noted at this time. Mean gestational sac diameter is 7 millimeters. Estimated gestational age is 5 weeks, 3 days. Estimated gestational age based on last menstrual period is 10 weeks, 4 days. Heart rate: No cardiac activity is detected. Maternal organs: Ovaries are within normal limits. IMPRESSION: 1. Single intrauterine gestational sac with yolk sac seen. No pole or cardiac activity is detected at this time. Please correlate with serial beta hCG levels and follow-up ultrasound for evaluation of viability. We strive to produce accurate, complete, and clear reports of imaging services. To assist us in improving patient care, this report was composed using standard report templates and voice recognition software. Therefore, it may contain abnormal punctuation, insertions and/or omissions. Occasional wrong-word or sound-alike substitutions may occur. Though we review the report and make efforts to correct it, we do recommend that the report be read carefully in proper context to recognize any text inaccuracies. Dictated by: Jose Rizzo M.D. on 09/18/2022 at 10:37 Approved by: Jose Rizzo M.D. on 09/18/2022 at 10:39
== END ==
PROVIDERS: Referring Provider Family Medicine; Visit Provider Family Medicine
DX: Z36.87 Encounter for antenatal screening for uncertain dates (principal); Z3A.01 Less than 8 weeks gestation of pregnancy
CPT/HCPCS: 76801; 76817

== ENCOUNTER → 2022-11-11 11:02 | Outpatient (CLI) | payer OTHER, MEDICAID, SELFPAY ==
[2022-11-11 11:57] LABS: Add Manual Diff / Slide Review NO; Basophils Absolute Auto 0 /uL (0-100); Basophils Percent Auto 0.1 % (0-2); Eosinophils Absolute Auto 0 /uL (0-450); Eosinophils Percent Auto 0.5 % (2-4); Hematocrit 35.7 % (36-46); Hemoglobin 11.8 g/dL (12.0-16.0); Lymphocytes Absolute Auto 900 /uL (1100-4500); Lymphocytes Percent Auto 13.4 % (25-40); Mean Corpuscular Hemoglobin 25.6 PG (26-34); Mean Corpuscular Volume 77.6 fL (80-100); Monocytes Absolute Auto 400 /uL (0-900); Monocytes Percent Auto 5.8 % (3-14); Neutrophils Absolute Auto 5400 /uL (1500-7000); Neutrophils Percent Auto 80.2 % (50-75); Platelet Count 141 X10^3/uL (150-400); Red Cell Distribution Width 24.1 % (11.6-14.8); White Blood Cell Count 6.8 X10^3/uL (4.5-11.0)
[2022-11-11 12:14] LABS: Anisocytosis 2+; Microcytosis 1+
[2022-11-11 12:46] LABS: HCG Quantitative /Beta subunit 46026 mIU/mL
[2022-11-11 13:18] LABS: Appearance Urine UA SL CLOUDY; Bilirubin Urine UA NEGATIVE (NEGATIVE); Color Urine UA YELLOW; Glucose Urine UA NEGATIVE (Negative); Ketones Urine UA NEGATIVE (NEGATIVE); Leukocyte Esterase Urine UA 2+ (NEGATIVE); Nitrite Urine UA NEGATIVE (Negative); Occult Blood Urine UA 1+ (Negative); Protein Urine UA NEGATIVE (Negative); Specific Gravity Urine UA <=1.005 (1.000-1.035); Urobilinogen Urine UA 0.2 E.U./dL (0.2)
[2022-11-11 13:23] LABS: pH Urine UA 5.5 (4.5-8.0)
[2022-11-11 13:26] LABS: Bacteria Urine Moderate (10-30); RBC Urine 5-10/HPF (0-5/HPF); Squamous Epithelial Cell Urine 5-10 /HPF (0-5/HPF); WBC Urine 10-30/HPF (0-5/HPF)
[2022-11-12 09:09] LABS: RPR Screen Non Reactive (Non Reactive)
[2022-11-12 10:13] LABS: Varicella IgG Antibody 2665 index (Immune >165)
[2022-11-12 16:14] LABS: Hepatitis B Surface Antigen NEGATIVE s/c (NEGATIVE); Rubella Antibody IgG 70.2 IU/mL (>15)
[2022-11-12 16:24] LABS: HIV 1 & 2 Ab/Ag 4th Gen Combo NEGATIVE (NEGATIVE); Hep C Virus Ab w/Reflex Quant NEGATIVE s/c (NEGATIVE)
== END ==
PROVIDERS: Referring Provider Family Medicine; Visit Provider Family Medicine
DX: Z34.80 Encounter for supervision of other normal pregnancy, unspecified trimester (principal)
CPT/HCPCS: 36415; 80055; 81003; 81015; 84702; 86787; 86803; 86850; 86900; 86901; 87086; 87389

== ENCOUNTER → 2022-12-25 15:26 | Outpatient (CLI) | payer OTHER, MEDICAID, SELFPAY ==
--- NOTE | 2022-12-25 15:27 | DI.US.S_ITS ---
PROCEDURE: US OB >= 14 WEEKS FETUS INDICATIONS: ANATOMY SCAN OUTSIDE/PRIOR DATING DATA: Last menstrual period (LMP): 07/06/2022. LMP-based estimated date of delivery (FRANKLIN): 04/12/2023. First dating scan (date and location): 09/18/2022. Estimated date of delivery ([place]ANKLIN) from first dating scan: 05/18/2023. The calculations are made using the working FRANKLIN of 05/15/2023. TECHNIQUE: Real-time scanning was performed of the fetus, with image documentation and biometric measurements. Endovaginal scanning: Non COMPARISON: None. FINDINGS: General: A single living intrauterine gestation is present. Presentation: Breech. Placenta: Placental position is posterior , without previa. Amniotic fluid index: 13.3 cm, normal range is 5-24 cm. Single deepest vertical pocket is 3.9 cm. heart rate: 157 beats per minute. Maternal cervical canal: 3.5 cm long. Normal lower limit is 2.5 cm. biometrics: Biparietal diameter: 4.4 cm, 19 week 2 day Head circumference: 16.8 cm, 19 week 4 day Abdominal circumference: 15.1 cm, 20 week 3 day Femur length: 3.3 cm, 20 week 1 day Clinically estimated gestational age: 19 week 6 day Composite gestational age from present scan: 19 week 6 day Estimated weight and percentile: 336 g, 63 percentile Anatomic survey: Neuro: Ventricles are non-dilated at less than 10 mm. Cisterna magna is normal at 3-11 mm. Cerebellum is normal in size and morphology. Nuchal skin fold: Normal at less than 6 mm between 14-21 weeks gestational age. Face: Nose and lips, facial profile are normal. Spine: No evidence for spina bifida. Heart: 4-chambered heart is present, with normal ventricular outflow tracts. Diaphragm: Diaphragm is intact. Stomach: Left-sided stomach is present. Kidneys: No hydronephrosis. Normal is less than 5 mm in 2nd trimester, less than 7 mm in 3rd trimester. Cord: 3-vessel cord has orthotopic insertion. Bladder: Normal in size. Extremities: All 4 extremities identified. IMPRESSION: Single live intrauterine consistent with 19 week 6 day gestation. Normal anatomic survey Approved by: Eber Paul M.D. on 12/25/2022 at 19:17
== END ==
PROVIDERS: Referring Provider Family Medicine; Visit Provider Family Medicine
DX: Z34.82 Encounter for supervision of other normal pregnancy, second trimester (principal); Z3A.19 19 weeks gestation of pregnancy
CPT/HCPCS: 76811

== ENCOUNTER → 2023-01-11 14:23 | Outpatient (CLI) | payer OTHER, MEDICAID, SELFPAY | PROVIDERS: Visit Provider Family Medicine | DX: N89.8 Other specified noninflammatory disorders of vagina (principal) | CPT/HCPCS: 87210 ==

== ENCOUNTER 2023-01-26 10:57 | Observation (INO) | payer OTHER, MEDICAID, SELFPAY ==
--- NOTE | 2023-01-26 11:26 | PM.OBTRLD ---
Visit Information Visit Information Date of evaluation: 01/26/23 Primary OB Provider: Silvana Huber Comments/Additional reasons for admission: Pt is a 32yo at 24w3d here due to vaginal spotting and lower abdominal cramping. The pt has been spotting on and off throughout her , but reports the spotting has been worse recently. She then developed some abdominal cramping today as well. She has not felt her baby move as much for the last 7hrs either. She continues to have more vaginal discharge than she is used to - no vaginal irritation/pain, clumping, abnormal color/smell. [facility] Medical History (Updated 10/14/22 @ 08:49 by Silvana Huber MD) Acne (~2012) Anxiety (~2011) Chicken pox (~1997) Anemia (~2006) Surgical History (Updated 10/07/22 @ 11:06 by Kseina Hall RN) [place] teeth extracted Status post repeat low transverse section History of skin surgery Anesthesia History of (~05/05/11) Family History Father Diabetes mellitus Hyperlipidemia Mother Hypertension Anxiety Grandfather Hypertension Stroke Grandmother Diabetes mellitus Hypertension Hyperlipidemia Anxiety Grandfather Hypertension Grandmother Diabetes mellitus Hyperlipidemia Hypertension Social History marital status: number of children: 2 household members: spouse and children lives independently: Yes caregiver/support person: Yes housing: house pets and animals: No education level: vocational occupational status: unemployed current occupational exposures/hazards: No special paul needs: No travel history: recent (domestic only) seatbelt use: always helmet use: Yes water heater temp set < 120 deg: Yes working smoke detector in home: Yes fire extinguisher in home: Yes carbon monox detector in home: Yes firearms in home: Yes firearms unloaded and locked: Yes do you feel safe at home: Yes Smoking Status: Never smoker second hand exposure: No alcohol intake: former (rarely when not ) substance use type: does not use during the past year weight has: other (youngest child only 7 months old) well-balanced diet: daily or most days daily servings fruits/ve or more times/day caffeine: No (drinks decaf) Type(s) of exercise: walking (only when the weather is good) Evaluation Evaluation Baseline heart rate: 145 Variability: Moderate (11-25) monitor accelerations: Present Monitor Decelerations: Absent Category of Tracing: Reactive Diagnosis, Plan/Disposition Plan/Disposition Plan: Pt is a 32yo at 24w3d here due to vaginal spotting and lower abdominal cramping. NST reactive, no contractions. Wet prep was positive for BV, metronidazole sent. U/S reassuring - placenta at edge of os but previously distant and no evidence of abruption. Pelvic rest for now. Stable for d/c home. OB Disposition: home
--- NOTE | 2023-01-26 11:27 | DI.US.S_ITS ---
PROCEDURE: US OB BIOPHYSICAL PROFILE INDICATIONS: DECREASED MOVEMENT OUTSIDE/PRIOR DATING DATA: Last menstrual period (LMP): 07/06/2022. LMP-based estimated date of delivery (FRANKLIN): 04/12/2023. First dating scan (date and location): 09/18/2022. Estimated date of delivery ([place]) from first dating scan: 05/18/2023. TECHNIQUE: Real-time scanning was performed of the fetus for biophysical profile, with image documentation. Endovaginal scanning: Not performed COMPARISON: [facility], OB >= 14 WEEKS FETUS, 12/25/2022, 15:41. FINDINGS: General: A single living intrauterine gestation is present. Presentation: Transverse. Placenta: Placental position is posterior. Placental edge appears at the internal cervical os. Amniotic fluid index: 18.6 cm, normal range is 5-24 cm. Single deepest vertical pocket is 6.6 cm. heart rate: 157 beats per minute. Maternal cervical canal: 4.9 cm long. Normal lower limit is 2.5 cm. estimated gestational age: 24 weeks 3 days Biophysical profile: Tone: 2 points. Movement: 2 points. Respiration: 2 points. Largest pocket of fluid: 2 points. IMPRESSION: 1. Single living intrauterine in transverse presentation. 2. Biophysical profile score 8/8. 3. Posterior placenta with placental edge appearing to be at the internal cervical os, suspect related to a uterine contraction as no evidence of placenta previa was identified on the prior exam. Attention on follow-up recommended. We strive to produce accurate, complete, and clear reports of imaging services. To assist us in improving patient care, this report was composed using standard report templates and voice recognition software. Therefore, it may contain abnormal punctuation, insertions and/or omissions. Occasional wrong-word or sound-alike substitutions may occur. Though we review the report and make efforts to correct it, we do recommend that the report be read carefully in proper context to recognize any text inaccuracies. Dictated by: Miguel Ledezma M.D. on 01/26/2023 at 13:36 Approved by: Miguel Ledezma M.D. on 01/26/2023 at 13:41
[2023-01-26 11:57] LABS: Appearance Urine UA SL CLOUDY; Bilirubin Urine UA NEGATIVE (NEGATIVE); Color Urine UA YELLOW; Glucose Urine UA NEGATIVE (Negative); Ketones Urine UA NEGATIVE (NEGATIVE); Leukocyte Esterase Urine UA 3+ (NEGATIVE); Nitrite Urine UA NEGATIVE (Negative); Occult Blood Urine UA 2+ (Negative); Protein Urine UA NEGATIVE (Negative); Specific Gravity Urine UA <=1.005 (1.000-1.035); Urobilinogen Urine UA 0.2 E.U./dL (0.2)
[2023-01-26 12:20] LABS: RBC Urine 0-1/HPF (0-5/HPF); WBC Urine 5-10/HPF (0-5/HPF)
[2023-01-26 12:21] LABS: Bacteria Urine Moderate (10-30); Culture Indicated Urine Specimen Cultured; Squamous Epithelial Cell Urine 5-10 /HPF (0-5/HPF)
== END 2023-01-26 13:08 | disposition home or self-care (01) ==
PROVIDERS: Admitting Provider Family Medicine; Referring Provider Family Medicine; Visit Provider Family Medicine
DX: O26.852 Spotting complicating pregnancy, second trimester (principal); O26.892 Other specified pregnancy related conditions, second trimester; R10.30 Lower abdominal pain, unspecified; Z3A.24 24 weeks gestation of pregnancy
CPT/HCPCS: 59025; 76819; 81003; 81015; 87086; 87210; G0378; G0379

== ENCOUNTER → 2023-03-15 16:13 | Outpatient (CLI) | payer OTHER, MEDICAID, SELFPAY ==
[2023-03-15 20:32] LABS: Appearance Urine UA CLOUDY; Bilirubin Urine UA NEGATIVE (NEGATIVE); Color Urine UA YELLOW; Glucose Urine UA NEGATIVE (Negative); Ketones Urine UA NEGATIVE (NEGATIVE); Leukocyte Esterase Urine UA 3+ (NEGATIVE); Nitrite Urine UA NEGATIVE (Negative); Occult Blood Urine UA 2+ (Negative); Protein Urine UA NEGATIVE (Negative); Urobilinogen Urine UA 0.2 E.U./dL (0.2)
[2023-03-15 20:39] LABS: Amorphous Sediment Urine 2+; Bacteria Urine Many (>30); Culture Indicated Urine Specimen Cultured; RBC Urine 1-5/HPF (0-5/HPF); Squamous Epithelial Cell Urine 5-10 /HPF (0-5/HPF); WBC Urine 5-10/HPF (0-5/HPF)
== END ==
PROVIDERS: PCP Family Medicine; Visit Provider Family Medicine
DX: N89.8 Other specified noninflammatory disorders of vagina (principal); O26.899 Other specified pregnancy related conditions, unspecified trimester
CPT/HCPCS: 81001; 87086; 87210

== ENCOUNTER 2023-04-20 14:44 | Outpatient (CLI) | payer OTHER, MEDICAID, SELFPAY ==
--- NOTE | 2023-04-20 15:07 | P.TNLD_ITS ---
Visit Information Visit Information Date of evaluation: 04/20/23 Primary OB Provider: Silvana Huber Comments/Additional reasons for admission: 32yo at 36w3d here due to concerns for LOF. Pt reports feeling a small gush of fluid this morning, continued to leak slightly since then. She had intermittent light vaginal bleeding Julio through yesterday morning, none since then. Very mild cramping. She is feeling her baby move regularly. [facility] Medical History (Updated 04/20/23 @ 15:10 by Silvana Huber MD) Acne (~2012) Anxiety (~2011) Chicken pox (~1997) Anemia (~2006) Surgical History (Updated 10/07/22 @ 11:06 by Ksenia Hall RN) [place] teeth extracted Status post repeat low transverse section History of skin surgery Anesthesia History of (~05/05/11) Family History Father Diabetes mellitus Hyperlipidemia Mother Hypertension Anxiety Grandfather Hypertension Stroke Grandmother Diabetes mellitus Hypertension Hyperlipidemia Anxiety Grandfather Hypertension Grandmother Diabetes mellitus Hyperlipidemia Hypertension Social History marital status: number of children: 2 household members: spouse and children lives independently: Yes caregiver/support person: Yes housing: house pets and animals: No education level: vocational occupational status: unemployed current occupational exposures/hazards: No special paul needs: No travel history: recent (domestic only) seatbelt use: always helmet use: Yes water heater temp set < 120 deg: Yes working smoke detector in home: Yes fire extinguisher in home: Yes carbon monox detector in home: Yes firearms in home: Yes firearms unloaded and locked: Yes do you feel safe at home: Yes Smoking Status: Never smoker second hand exposure: No alcohol intake: former (rarely when not ) substance use type: does not use during the past year weight has: other (youngest child only 7 months old) well-balanced diet: daily or most days daily servings fruits/ve or more times/day caffeine: No (drinks decaf) Type(s) of exercise: walking (only when the weather is good) Evaluation Evaluation Baseline heart rate: 155 Variability: Moderate (11-25) monitor accelerations: Present Monitor Decelerations: Absent Category of Tracing: Reactive Non-invasive Membranes Rupture Test: negative Diagnosis, Plan/Disposition Final Diagnosis (1) Vaginal discharge: Status: Acute Plan/Disposition Plan: 32yo at 36w3d here due to concerns for LOF. Amniosure negative. NST reactive. Stable for discharge home. OB Disposition: home
== END 2023-04-20 15:28 | disposition home or self-care (01) ==
LOC: OB 04-22 08:02
PROVIDERS: PCP Family Medicine; Referring Provider Family Medicine; Visit Provider Family Medicine
DX: O26.893 Other specified pregnancy related conditions, third trimester (principal); N89.8 Other specified noninflammatory disorders of vagina; Z3A.36 36 weeks gestation of pregnancy
CPT/HCPCS: 59025; 84112; G0378; G0379

== ENCOUNTER 2023-05-10 05:53 | Inpatient (IN) | payer OTHER, MEDICAID, SELFPAY ==
--- NOTE | 2023-05-10 | PATH_ITS ---
[facility] Accession Number: [id number] No. of containers..01 Tissue . 01 Material submitted: . fallopian tube - BILATERAL FALLOPIAN TUBES . 01 Diagnosis: Bilateral Fallopian Tubes, Segment Excision: Segments of fallopian tubes without pathologic abnormalities. MRV 05/13/2023 1657 Local . 01 Electronically signed: . Lori Pendleton MD, Pathologist NPI- [id number] . 01 Gross description: . The specimen is received in formalin labeled with the patient's name, , and bilateral fallopian tubes, consists of two violaceous nonfimbriated tubular soft tissue fragments. The first measures 5.9 x 1.1 cm with no cystic structures identified. Sectioning reveals a hemorrhagic stellate lumen. The second fragment measures 2.1 x 0.9 cm with violaceous, smooth serosa with no cystic structures identified. Sectioning reveals a hemorrhagic stellate lumen. Textile Coating Machine Operator sections are submitted as follows: . A1: First segment. A2: Second segment. ([id number]) /MRV 05/12/2023 1227 Local . 01 Pathologist provided ICD-10: Z30.2 . 01 CPT . 756580 Specimen Comment: A courtesy copy of this report has been sent to [phone] Performed at: 01 [facility] [address] [place] [address] [address], [place], [place] [id number] MD Hermilo Miller MD Phone: [phone]
[2023-05-10 06:03] VITALS: BP 122/77
[2023-05-10 06:49] LABS: Add Manual Diff / Slide Review NO; Basophils Absolute Auto 0 /uL (0-100); Basophils Percent Auto 0.1 % (0-2); Eosinophils Absolute Auto 0 /uL (0-450); Eosinophils Percent Auto 0.4 % (2-4); Hematocrit 36.2 % (36-46); Hemoglobin 12.4 g/dL (12.0-16.0); Lymphocytes Absolute Auto 1500 /uL (1100-4500); Mean Corpuscular HGB Conc 34.2 % (30-36); Mean Corpuscular Hemoglobin 29.8 PG (26-34); Mean Corpuscular Volume 87.1 fL (80-100); Monocytes Absolute Auto 900 /uL (0-900); Neutrophils Absolute Auto 8200 /uL (1500-7000); Neutrophils Percent Auto 77.5 % (50-75); Platelet Count 135 X10^3/uL (150-400); Red Blood Cell Count 4.15 X10^6/uL (4.0-5.2); Red Cell Distribution Width 15.1 % (11.6-14.8); White Blood Cell Count 10.6 X10^3/uL (4.5-11.0)
--- NOTE | 2023-05-10 07:30 | P.HPOB_ITS ---
OB HPI Date/Time Date of admission: 05/10/23 Date Patient Seen: 05/10/23 History of Present Condition Chief complaint: Section FRANKLIN Calculator 2 Estimated Delivery Date Method Current WG Current Estimate 05/15/23 Manual 39w 2d Final FRANKLIN - BERNABE Other Estimates 05/15/23 LMP (Certain) 39w 2d 05/18/23 Ultrasound #1 38w 6d Estimated Gestational Age (weeks): 39w2d : 3 Para: 2 Narrative: Pt is a 33yo at 39w2d here for schedule repeat . care: initiated at week # (9), number of visits (8) and pounds weight gain (20) Dating criteria OB: LMP confirmed by 1st trimester US Ultrasounds: normal 1st trimester US and normal mid trimester US Obstetrical complications: none Medical complications OB: none Preadmission Labs Last OB Lab Results: 2 Blood Type O Positive 05/10/23 06:20 Antibody Screen Negative 05/10/23 06:20 Hematocrit 36.2 % (36-46) 05/10/23 06:20 Hemoglobin 12.4 g/dL (12.0-16.0) 05/10/23 06:20 Hepatitis B Surface Antigen Negative s/c (NEGATIVE) 11/11/22 11 :20 Hepatitis C Antibody Negative s/c (NEGATIVE) 11/11/22 11:20 Rubella Antibody 70.2 IU/mL (>15) 11/11/22 11:20 Varicella-Zoster IgG Antibody 2665 index (Immune >165) 11/11/22 11:20 Glucose 1 Hour 160 mg/dL (76-139) H 12/31/21 12:35 Group B Streptococcus (PCR) Neg for grp b strep 02/05/22 15:19 -: Urine: negative External Labs -: Urine: negative Prior (ies) Past Pregnancies Del. Date GA/Weeks Labor Lgth Wt Sex Route Outcome Anesthesia Place Delv Breastfeed Preg Comp Name 05/05/11 41 36 7 lb 11 oz live - full term [place], [place] 2 months failure to progress post-dates induction Sergey 02/19/22 39 7 lb 6.097 oz Female live - fu ll term [facility] Current Liudmila Delivery Date: 05/05/11 Last Updated by: Ksenia Rafael, R.N. hemorrhage (~4 units PRBCs transfused) Evaluation Evaluation Baseline heart rate: 140 Variability: Moderate (11-25) monitor accelerations: Present Monitor Decelerations: Absent Category of Tracing: Reactive [facility] Medical History (Updated 04/20/23 @ 15:10 by Silvana Huber MD) Acne (~2012) Anxiety (~2011) Chicken pox (~1997) Anemia (~2006) Surgical History (Updated 10/07/22 @ 11:06 by Ksenia Hall RN) [place] teeth extracted Status post repeat low transverse section History of skin surgery Anesthesia History of (~05/05/11) Family History Father Diabetes mellitus Hyperlipidemia Mother Hypertension Anxiety Grandfather Hypertension Stroke Grandmother Diabetes mellitus Hypertension Hyperlipidemia Anxiety Grandfather Hypertension Grandmother Diabetes mellitus Hyperlipidemia Hypertension Social History marital status: number of children: 2 household members: spouse and children lives independently: Yes caregiver/support person: Yes housing: house pets and animals: No education level: vocational occupational status: unemployed current occupational exposures/hazards: No special paul needs: No travel history: recent (domestic only) seatbelt use: always helmet use: Yes water heater temp set < 120 deg: Yes working smoke detector in home: Yes fire extinguisher in home: Yes carbon monox detector in home: Yes firearms in home: Yes firearms unloaded and locked: Yes do you feel safe at home: Yes Smoking Status: Never smoker second hand exposure: No alcohol intake: former (rarely when not ) substance use type: does not use during the past year weight has: other (youngest child only 7 months old) well-balanced diet: daily or most days daily servings fruits/ve or more times/day caffeine: No (drinks decaf) Type(s) of exercise: walking (only when the weather is good) Meds Home Medications and Allergies Home Medications Medication Instructions Recorded Confirmed Type prenat.vits,jaleesa,bbx-pekk-gualf 1 tab PO DAILY 07/13/21 05/07/23 History R-lipoic acid 145 mg/scoop oral 100 mg PO DAILY PRN bleeding 10/07/22 05/07/23 History powder cholecalciferol (vitamin D3) 125 125 mcg PO DAILY 10/07/22 05/07/23 History mcg/mL (5,000 unit/mL) oral drops ferrous gluconate 325 mg (37 mg 324 mg PO .every other day 10/07/22 05/07/23 History iron) tablet pyridoxine (vitamin B6) 50 mg 50 mg PO TID PRN nausea #30 tabs 11/09/22 05/07/23 Rx tablet glucometer #1 ea 02/15/23 05/07/23 Rx glucometer test strips #400 ea 02/15/23 05/07/23 Rx lancets #400 ea 02/15/23 05/07/23 Rx sharps container #1 ea 02/15/23 05/07/23 Rx fluconazole 150 mg tablet 150 mg PO Q3D 2 doses #2 tabs 03/17/23 05/07/23 Rx Allergies Allergy/AdvReac Type Severity Reaction Status Date / Time Latex, Natural Rubber Allergy Intermediate Hives Verified 05/07/23 10:19 OB Exam Narrative Exam Narrative: Gen: NAD, sitting comfortably in bed, appears well CV: RRR, no murmurs Resp: clear to auscultation bilaterally Abd: soft, nontender, gravid Ext: no edema Objective Labs 05/10/23 06:20 Labs: Laboratory Results - last 24 hr 05/10/23 06:20 WBC 10.6 RBC 4.15 Hgb 12.4 Hct 36.2 MCV 87.1 MCH 29.8 MCHC 34.2 RDW 15.1 H Plt Count 135 L Neut % (Auto) 77.5 H Lymph % (Auto) 14.0 L [place] % (Auto) 8.0 Eos % (Auto) 0.4 L Baso % (Auto) 0.1 Neut # (Auto) 8200 H Lymph # (Auto) 1500 [place] # (Auto) 900 Eos # (Auto) 0 Baso # (Auto) 0 Assessment and Plan Assessment and Plan Assessment and Plan narrative: Pt is a 33yo at 39w2d here for scheduled repeat . No complications with . GBS unknown (pt declined), Rh positive. Pt desires bilateral salpingectomy at the time of delivery. Consent signed 03/15/23. In clinic prior to surgery discussed risks including but not limited to bleeding/hemorrhage, infection, injury to other organs such as bowel/bladder, injury to fetus. The pt agrees to blood transfusion if medically necessary. Consent was signed. Pt agrees to blood transfusion if medically necessary. Pt will receive 2g Ancef prior to delivery. SCDs to be placed.
--- NOTE | 2023-05-10 07:40 | PM.PREOP ---
Pre-operative Note Interval Note History & Physical reviewed/Exam performed by Physician: Yes Changes to H&P: No
[2023-05-10] MEDS: CITRIC ACID/SODIUM CITRATE 15 ML SOLUTION 30 ML PO (07:43)
[2023-05-10] MEDS: ACETAMINOPHEN IV 1,000 MG/100 ML VIAL 400 MG IV (07:51)
--- NOTE | 2023-05-10 07:53 | SUR.OPER ---
Supine on Padded OR bed, head on pillow, safety belt at thigh, arms secured on padded arm boards at <90 degrees abduction. Bump under right buttock. Legs uncrossed with pillow under knees, gel pad to heels, tape over blanket to lower legs.
[2023-05-10] MEDS: CEFAZOLIN 2 GM/100 ML PREMIX 100 ML IV (08:03)
[2023-05-10 09:15] VITALS: BP 95/63; PULSE 75; RESP 14; TEMP 36.4; O2SAT 99
[2023-05-10 09:20] VITALS: BP 118/60; PULSE 76; RESP 12; O2SAT 99
[2023-05-10 09:25] VITALS: BP 101/66; PULSE 70; RESP 16; TEMP 36.4; O2SAT 97
--- NOTE | 2023-05-10 09:45 | P.OP_ITS ---
Operative Date/Time/Diagnoses Date of procedure: 05/10/23 Time of procedure: 08:00 Pre-op diagnosis: 39w2d gestation GBS unknown Rh positive Hx of prior Desire permanent sterilization Post-op diagnosis: same Procedure & Clinicians Procedure: Repeat with bilateral salpingectomy Same procedure as scheduled: Yes Indications: Hx of prior Desire permanent sterilization Surgeon: Silvana Huber Click Yes if Unassisted: No Creative Intern: Agustina Pérez Anesthesia Type: Spinal Operative Notes Findings: Normal uterus, ovaries, and tubes Closure Type: primary Intraoperative meds administered: Acetaminophen, Duramorph, Ketorolac and Pitocin Applied: Catheter Estimated Blood Loss (mL): 500 Blood products transfused: none Procedure in detail: OPERATIVE COURSE: The patient was taken to the operating room where spinal anesthesia was placed. She was then prepared and draped in the normal sterile fashion in the dorsal supine position with a leftward tilt. Anesthesia was tested and found to be adequate. A Pfannensteil skin incision was then made with the scalpel and carried through to the underlying layer of fascia with the scalpel. The fascia was incised in the midline and the incision extended laterally with the Jones scissors. The superior aspect of the fascial incision was then grasped with Charisse clamps, elevated with the help of the surgical pathologist, and the underlying rectus muscles dissected off bluntly and sharply where needed. Attention was then turned to the inferior aspect of the incision which, in a similar fashion, was grasped, tented up with Charisse clamps, and the rectus muscle dissected off bluntly and sharply with Jones scissors. The rectus muscles were then in the midline, and the peritoneum was identified and entered bluntly. The peritoneal incision was then extended with good visualization of the bladder. Retraction was provided by the surgical pathologist. The bladder blade was then inserted and the vesicouterine peritoneum identified, grasped with pick-ups and entered sharply with the Metzenbaum scissors. The incision was then extended laterally and the bladder flap created digitally. The bladder blade was then reinserted and the lower uterine segment incised in a transverse fashion with the scalpel, with the surgical pathologist providing suction. The uterine incision was then extended superolaterally by pulling superolaterally on both sides. Membranes were ruptured and fluid was clear. The bladder blade was removed the infant's head was flexed out of OA position and delivered atraumatically, with fundal pressure by the surgical pathologist. The nose and mouth were suctioned with bulb suction and the cord was clamped and cut. The was handed off to the waiting nursing staff. Cord blood was co llected for Rh status. The placenta was then delivered with gentle cord traction. The uterus was then exteriorized and cleared of all clots and debris. The uterine incision was repaired with O Vicryl in a running, locked fashion. A second layer of the same suture was used to obtain excellent hemostasis. Bilateral salpingectomy: Attention was then turned to the patient's bilateral salpingectomy. A [place] was used to cone picker the right fallopian tube a Ligasure was used to carefully remove the tube, it from the mesosalpinx. The left tube was then examined, and noted to be directly adherent to the ovary for the first approximately 3cm. The more proximal portion of the tube was successfully removed with the Ligasure. The tubes were sent to pathology. Hemostasis of stumps was excellent. The uterus was returned to the abdomen. The gutters were cleared of all clots. Hysterotomy was investigated and found to be hemostatic. The fascia was reapproximated with O Vicryl in a running fashion. The subcutaneous tissue was reapproximated with 3-O Vicryl. The skin was closed with 4-O Vicryl. The surgical pathologist helped with retraction during closures. SPONGE AND NEEDLE COUNTS: Correct x3. DRESSING: Aquacel ANTICOAGULATION: SCDs applied prior to Surgery Preop antibiotics given (see MAR). The patient was taken to recovery room having tolerated procedure well. Complications: none [facility] 1: Gender: Female Presentation: vertex Position: Left Occiput Anterior Placental Delivery Description: Spontaneous Cord Vessel Description: 3 Vessels and Nuchal Cord score (1 min): 9 score (5 min): 10 weight: 8 lb 15.389 oz Post-operative Condition: stable Disposition: PACU Aftercare: routine postop
[2023-05-10] MEDS: LACTATED RINGERS 1,000 ML 999 ML IV (09:47)
[2023-05-10] MEDS: OXYCODONE IR 10 MG TABLET PO ×4 (10:52→22:47)
[2023-05-10] MEDS: KETOROLAC 30 MG/ML VIAL IV ×2 (14:51→21:06)
[2023-05-10] MEDS: ACETAMINOPHEN 325 MG TABLET 650 MG PO ×2 (16:30→22:03)
[2023-05-11] MEDS: OXYCODONE IR 10 MG TABLET PO ×4 (03:41→16:07)
[2023-05-11] MEDS: KETOROLAC 30 MG/ML VIAL IV (03:41)
[2023-05-11] MEDS: ACETAMINOPHEN 325 MG TABLET 650 MG PO ×3 (05:35→18:37)
[2023-05-11 06:51] LABS: Add Manual Diff / Slide Review NO; Basophils Absolute Auto 0 /uL (0-100); Basophils Percent Auto 0.1 % (0-2); Eosinophils Absolute Auto 100 /uL (0-450); Eosinophils Percent Auto 0.8 % (2-4); Hematocrit 30.9 % (36-46); Hemoglobin 10.7 g/dL (12.0-16.0); Lymphocytes Absolute Auto 1200 /uL (1100-4500); Lymphocytes Percent Auto 15.4 % (25-40); Mean Corpuscular HGB Conc 34.6 % (30-36); Mean Corpuscular Hemoglobin 30.5 PG (26-34); Mean Corpuscular Volume 88.1 fL (80-100); Monocytes Absolute Auto 700 /uL (0-900); Monocytes Percent Auto 9.3 % (3-14); Neutrophils Absolute Auto 5900 /uL (1500-7000); Neutrophils Percent Auto 74.4 % (50-75); Platelet Count 104 X10^3/uL (150-400); Red Blood Cell Count 3.51 X10^6/uL (4.0-5.2); Red Cell Distribution Width 14.9 % (11.6-14.8); White Blood Cell Count 7.9 X10^3/uL (4.5-11.0)
[2023-05-11] MEDS: IBUPROFEN 600 MG TABLET PO ×3 (09:53→22:05)
[2023-05-11] MEDS: PRENATAL VIT,CALC/IRON/FOLIC 1 TABLET 1 TAB PO (09:53)
[2023-05-11] MEDS: DOCUSATE 100 MG CAPSULE PO (09:53)
--- NOTE | 2023-05-11 15:20 | PM.OBPN.1 ---
Subjective - OB Subjective Narrative: Patient reports that she is doing well. She continues to struggle with pain control. Her lochia is decreasing appropriately. She has voided successfully. She has only passed minimal gas. Date Patient Seen: 05/11/23 Exam Vital Signs (past 8 hours): Oxygen Delivery Method Room Air Resp Auscultation: clear to auscultation bilaterally Cardio Rate: regular rate Rhythm: regular rhythm Heart Sounds: S1 normal, S2 normal and no murmurs GI Inspection: non-distended and incision (dressing c/d/i) Palpation: soft, No guarding and tender (appropriately tender) Auscultation: normal bowel sounds Other: fundus firm and below the umbilicus Extrem Right upper extremity: no edema Objective Labs 05/11/23 06:35 Labs: Laboratory Results - last 24 hr 05/11/23 06:35 WBC 7.9 RBC 3.51 L Hgb 10.7 L Hct 30.9 L MCV 88.1 MCH 30.5 MCHC 34.6 RDW 14.9 H Plt Count 104 L Neut % (Auto) 74.4 Lymph % (Auto) 15.4 L Wilkinson % (Auto) 9.3 Eos % (Auto) 0.8 L Baso % (Auto) 0.1 Neut # (Auto) 5900 Lymph # (Auto) 1200 Wilkinson # (Auto) 700 Eos # (Auto) 100 Baso # (Auto) 0 Assessment & Plan Plan Comments: Pt is a 33yo POD#1 s/p scheduled repeat without complications. Pt struggling with pain control. well. - Normal care - support - Continue Oxycodone q4hrs - Encouraged ambulation - Milk of Mg to help with BMs/gas Time Spent With Patient Time: Total time spent is greater than 50% in coordination of care (as documented) at patient's floor/unit and/or counseling patient: Time with patient: less than 15 minutes
[2023-05-11] MEDS: OXYCODONE IR 5 MG TABLET PO (20:06)
[2023-05-12] MEDS: OXYCODONE IR 5 MG TABLET PO ×4 (00:24→12:30)
[2023-05-12] MEDS: ACETAMINOPHEN 325 MG TABLET 650 MG PO ×3 (00:24→12:29)
[2023-05-12] MEDS: IBUPROFEN 600 MG TABLET PO ×2 (04:03→09:56)
--- NOTE | 2023-05-12 07:57 | PM.OBDS.1 ---
Discharge Providers Provider Date of admission: 05/10/23 05:53 Discharge Date: 05/12/23 Primary care physician: Silvana Huber MD Consults: 05/10/23 09:51 Consult to Gate Shear Operator Routine Comment: Discharge provider: Silvana Huber MD Summary Hospital Course Date Patient Seen: 05/12/23 Time Patient Seen: 07:57 Diagnoses: 39w2d gestation GBS unknown Rh positive Hx of prior Desire permanent sterilization Hospital Course: The pt presented for scheduled repeat with bilateral salpingectomy. The surgery was without complications, and she delivered a viable baby girl. , there were no complications. Her pain was initially difficult to control, but then improved. At the time of discharge she was voiding, ambulating, and passing flatus without difficulty. Her lochia was decreasing appropriately. Her pain was well controlled. She is and formula supplementing. She will f/u in 6 weeks for check. Peripartum Data Delivery Method: Section Procedures: Repeat with bilateral salpingectomy complications: none [place] 1: Gender: Female Disposition of : home Time Spent with Patient Time attestation: Total time spent providing and/or coordinating discharge services: Objective Labs 05/11/23 06:35 Exam Vital Signs (past 8 hours): Oxygen Delivery Method Room Air Cardio Rate: regular rate Rhythm: regular rhythm Heart Sounds: S1 normal, S2 normal and no murmurs GI Inspection: non-distended and incision (dressing c/d/i) Palpation: soft, No guarding and tender (appropriately tender) Auscultation: normal bowel sounds Other: fundus firm and below the umbilicus Extrem Right upper extremity: no edema Discharge Plan Discharge Plan Patient Disposition: Home Discharge orders & Medications Prescriptions: New acetaminophen 325 mg Tablet 650 mg PO Q6H Qty: 60 0RF docusate sodium 100 mg Capsule 100 mg PO DAILY Qty: 30 0RF ibuprofen 600 mg Tablet 600 mg PO Q6H Qty: 60 0RF oxycodone 5 mg Tablet 5 mg PO Q4H PRN (Reason: Pain, Moderate (4-6)) Qty: 40 0RF Continued prenat.vits,jaleesa,[id number] Tablet 1 tab PO DAILY ferrous gluconate 325 mg (37 mg iron) tablet 324 mg PO .every other day cholecalciferol (vitamin D3) 125 mcg/mL (5,000 unit/mL) drops 125 mcg PO DAILY Discontinued pyridoxine (vitamin B6) 50 mg tablet 50 mg PO TID PRN (Reason: nausea) Qty: 30 2RF fluconazole 150 mg tablet 150 mg PO Q3D Qty: 2 0RF Rx Instructions: take on tab on day one, repeat dose on third day. R-lipoic acid 145 mg/scoop powder 100 mg PO DAILY PRN (Reason: bleeding) No Action (DME) glucometer See Rx Instructions .Route .MEDSUPPLY Qty: 1 0RF Rx Instructions: to check glucose 4 times daily (DME) lancets See Rx Instructions .Route .MEDSUPPLY Qty: 400 2RF Rx Instructions: to check glucose 4 times daily (DME) glucometer test strips See Rx Instructions .Route .MEDSUPPLY Qty: 400 2RF Rx Instructions: to test glucose 4 times daily (DME) sharps container See Rx Instructions .Route .MEDSUPPLY Qty: 1 1RF Rx Instructions: for sharps for testing glucose 4 times daily Follow up/Referrals: Silvana Huber MD [Primary Care Provider] - (1 week incision check w/ Dr. Huber: Wednesday, @ 10am) Diet/Activity/Treatments Diet: Diet as Tolerated and Regular Skin/Wound/Dressing Care Report to your healthcare provider any signs of infection, such as:: chills, fever, increased pain and unusual drainage Visit Report/Discharge Packet Instructions: DI for Stand Alone Forms: Discharge: Care, Patient Portal/API, Stroke Signs & Symptoms Discharge Data Primary Care Provider: Silvana Huber
[2023-05-12] MEDS: DOCUSATE 100 MG CAPSULE PO (09:56)
[2023-05-12 11:41] VITALS: BP 101/66; PULSE 70; RESP 16; TEMP 36.4
== END 2023-05-12 13:15 | disposition home or self-care (01) | DRG 539 ==
PROVIDERS: Admitting Provider Family Medicine; PCP Family Medicine; Referring Provider Family Medicine; Visit Provider Family Medicine
PROC: 10D00Z1 Extraction of Products of Conception, Low, Open Approach (ICD-10-PCS; CPT 59514; principal; 2023-05-10 07:45)
DX: O34.211 Maternal care for low transverse scar from previous cesarean delivery (principal); Z3A.39 39 weeks gestation of pregnancy; Z67.40 Type O blood, Rh positive; Z37.0 Single live birth; Z30.2 Encounter for sterilization
CPT/HCPCS: 36415; 58611; 59050; 59514; 85025; 86850; 86900; 86901; J0136; J0690; J1885; J2250; J2274; J2405; J2704

== ENCOUNTER → 2023-08-31 12:17 | Outpatient (CLI) | payer OTHER, MEDICAID, SELFPAY ==
[2023-08-31 13:08] LABS: Add Manual Diff / Slide Review NO; Basophils Absolute Auto 0 /uL (0-100); Basophils Percent Auto 0.3 % (0-2); Eosinophils Absolute Auto 100 /uL (0-450); Eosinophils Percent Auto 1.3 % (2-4); Hematocrit 37.7 % (36-46); Hemoglobin 12.7 g/dL (12.0-16.0); Lymphocytes Absolute Auto 1400 /uL (1100-4500); Lymphocytes Percent Auto 24.4 % (25-40); Mean Corpuscular HGB Conc 33.8 % (30-36); Mean Corpuscular Hemoglobin 28.6 PG (26-34); Mean Corpuscular Volume 84.6 fL (80-100); Monocytes Absolute Auto 500 /uL (0-900); Monocytes Percent Auto 8.5 % (3-14); Neutrophils Absolute Auto 3800 /uL (1500-7000); Neutrophils Percent Auto 65.5 % (50-75); Platelet Count 184 X10^3/uL (150-400); Red Blood Cell Count 4.45 X10^6/uL (4.0-5.2); Red Cell Distribution Width 14.6 % (11.6-14.8); White Blood Cell Count 5.8 X10^3/uL (4.5-11.0)
[2023-08-31 13:18] LABS: HEMOLYSIS < 15 (0-50); Iron 50 ug/dL (37-170)
[2023-08-31 13:30] LABS: Cholesterol 185 mg/dL (140-199); HDL Cholesterol 56 mg/dL (40-60); LDL Cholesterol Calculated 107 mg/dL (<100); Percent Iron Saturation 11 % (15-50); Total Iron Binding Capacity 466 ug/dL (265-497); Transferrin 351 mg/dL (206-381); Triglycerides 110 mg/dL (35-150)
[2023-08-31 13:33] LABS: Hemoglobin A1C% w Est Avg Glu 4.9 % (4.0-6.0)
[2023-08-31 13:40] LABS: Vitamin D 25 Hydroxy (D3) 28.1 ng/mL (30.0-100.0)
[2023-08-31 13:52] LABS: TSH w/ Reflex to FT4 1.31 uIU/mL (0.47-4.68)
[2023-08-31 14:12] LABS: Vitamin B12 > 1000 pg/mL (239-931)
== END ==
PROVIDERS: PCP Family Medicine; Referring Provider Family Medicine; Visit Provider Family Medicine
DX: R53.83 Other fatigue (principal); E66.9 Obesity, unspecified
CPT/HCPCS: 36415; 80061; 82306; 82607; 83036; 83540; 83550; 84443; 85025

== ENCOUNTER → 2025-03-13 14:20 | Outpatient (CLI) | payer OTHER, SELFPAY | PROVIDERS: PCP Family Medicine; Referring Provider Family Medicine; Visit Provider Family Medicine | DX: N89.8 Other specified noninflammatory disorders of vagina (principal) | CPT/HCPCS: 87070; 87077; 87086; 87205; 87210 ==